=== PATIENT | male | born 1980 | race Caucasian/White ===

== ENCOUNTER 2017-03-23 22:55 | Emergency (ER) | payer SELFPAY ==
[2017-03-23 23:07] VITALS: BP 140/80; PULSE 80; RESP 14; TEMP 98.4; O2SAT 98
--- NOTE | 2017-03-23 23:40 | C.PDOC ---
History Of Present Illness 36 year old male who presents to the ER complaining of redness and swelling to the right foot since yesterday. Patient reports applying lotrimin foot cream with no relief. Denies weakness or numbness. Time Seen by Provider: 03/23/17 23:13 Chief Complaint (Nursing): Lower Extremity Problem/Injury History Per: Patient History/Exam Limitations: no limitations Onset/Duration Of Symptoms: Days Current Symptoms Are (Timing): Still Present Recent travel outside of the [place]: No Past Medical History Reviewed: Historical Data, Nursing Documentation, Vital Signs Vital Signs: Last Vital Signs Temp 98.4 F 03/23/17 23:05 Pulse 80 03/23/17 23:05 Resp 14 03/23/17 23:05 BP 140/80 03/23/17 23:05 Pulse Ox 98 03/24/17 00:45 - Medical History PMH: No Chronic Diseases Surgical History: No Surg Hx Family History: States: Unknown Family Hx - Social History Hx Tobacco Use: Yes Hx Alcohol Use: No Hx Substance Use: No - Immunization History Hx Tetanus Toxoid Vaccination: No Hx Influenza Vaccination: No Hx Pneumococcal Vaccination: No Review Of Systems Skin: Positive for: Other (Redness, Swelling) Neurological: Negative for: Weakness, Numbness Physical Exam - Physical Exam Appears: Non-toxic, No Acute Distress Skin: Warm, Dry Head: Atraumatic, Normacephalic Oral Mucosa: Moist Extremity: Normal ROM, Swelling (Minimal to dorsal aspect of right mid forefoot. ), Other (Moderate maceration between all toes of right foot. Localized erythema to distal aspect of right forefoot dorsally superior to base of 2nd- 4th toes.) Pulses: Left Dorsalis Pedis: Normal, Right Dorsalis Pedis: Normal Neurological/Psych: Oriented x3, Normal Speech, Normal Cognition ED Course And Treatment O2 Sat by Pulse Oximetry: 98 (Room air) Pulse Ox Interpretation: Normal Progress Note: Keflex and motrin administered. Patient educated on proper foot care and instructed to follow up with senior web engineer. Disposition - Disposition Referrals: Podiatry Clinic [Outside] Disposition: HOME/ ROUTINE Disposition Time: 23:36 Condition: STABLE Additional Instructions: Please clean feet with soap and water Apply lotrimin powder Take PO antibiotics as prescribed Follow up with podiatry Return to ER if worse Prescriptions: Cephalexin [cephalexin] 1,000 mg PO BID #28 cap Ibuprofen [Motrin] 600 mg PO Q6H #20 tab Instructions: Tinea Pedis (ED), Cellulitis (ED) - Clinical Impression Clinical Impression: Tinea pedis, Cellulitis of foot - Scribe Statement The provider has reviewed the documentation as recorded by the Scribtess Wright All medical record entries made by the Jessaibtess were at my direction and personally dictated by me. I have reviewed the chart and agree that the record accurately reflects my personal performance of the history, physical exam, medical decision making, and the department course for this patient. I have also personally directed, reviewed, and agree with the discharge instructions and disposition.
== END 2017-03-23 23:48 | disposition home or self-care (01) ==
LOC: C.ER 22:55
DX: L03.115 Cellulitis of right lower limb (principal); B35.3 Tinea pedis